=== PATIENT | female | born 1985 | race Caucasian/White ===

== ENCOUNTER 2018-10-07 09:13 | Day surgery (SDC) | payer MEDICAID ==
[2018-10-07] VITALS (15 sets, daily range): BP systolic 111–155; BP diastolic 71–94; PULSE 88–112; RESP 15–20; Ht 152.4 cm; Wt 74.0 kg
[~2018-10-07] VITALS: Ht 152.4 cm; Wt 74.0 kg
--- NOTE | 2018-10-07 08:53 | PREOPHP ---
DATE OF ADMISSION: 10/07/2018 HISTORY OF PRESENT ILLNESS: Ms. Marcy Najera is a 33-year-old 3, para 2, LMP 07/23/2018, diagnosed with missed , approximately 9 weeks gestational age, desires surgical management. PAST MEDICAL HISTORY: None. MEDICATIONS: None. PAST SURGICAL HISTORY: Cholecystectomy. OBSTETRIC HISTORY: x2 vaginal deliveries. GYNECOLOGIC HISTORY: 14, irregular, 5 days. She denies any sexually transmitted infections. Sexual ly active with 1 partner. SOCIAL HISTORY: She denies any smoking, drugs or alcohol. FAMILY HISTORY: None. REVIEW OF SYSTEMS: All within normal except history of present illness. PHYSICAL EXAMINATION: HEENT: Within normal. LUNGS: CTA bilateral. CARDIOVASCULAR: S1, S2, regular rhythm. ABDOMEN: Soft, nontender, negative distention. EXTREMITIES: Negative edema. No calf tenderness. VAGINAL: Normal external genitalia. Cervix negative CMT, negative lesions. Adnexa negative mass, n ontender bilateral. Fundus 8 to 10 weeks size uterus. IMAGING STUDIES: Ultrasound performed on 10/03/2018. Impression was an embryonic demise at approxim ately 9 weeks gestational age. ASSESSMENT: Missed , approximately 9 weeks gestational age, Rh positive. Desires surgical m anagement. PLAN: Consent for suction dilation and curettage. Risks, benefits and alternatives were explained. All questions were answered. Dictated By: SANDI ARAGON/EMEKA Conf#: [id number] DID#: [id number] CC: SANDI BRUMFIELD MD;*EndCC*
--- NOTE | 2018-10-07 12:10 | PREAC ---
Date/Time of Note Date/Time of Note DATE: 10/07/18 TIME: 12:08 Anesthesia Eval and Record Evaluation Time Pre-Procedure Interview DATE: 10/07/18 TIME: 12:08 Age 33 Sex female NPO: 8 hrs Preoperative diagnosis missed Planned procedure suction dilation curettage Past Medical History Past Medical History: Includes GI: Obesity Surgery & Anesthesia Issues No known issue Meds Anticoagulation: No Beta Simon within 24 hr: No Reason Beta Simon not given: Pt. not on B-Simon Meds reviewed: Yes Allergies Coded Allergies: No Known Allergy (Verified , 10/07/18) Allergies Reviewed: Yes Labs/Studies Labs Reviewed: Reviewed by anesthesiologist Result Diagram: 10/07/18 1012 Laboratory Tests 10/07/18 10:12 Blood Bank Test 10/07/18 10:12 Antibody Screen NEGATIVE Blood Type O POSITIVE test: N/A Pre-procedure Exam Last vitals Vital Signs Date Temp Pulse Resp B/P (MAP) Pulse Ox O2 O2 Flow FiO2 Time Delivery Rate 10/07/18 96.7 88 18 127/72 99 10:24 (90) Airway: Adequate mouth opening, Adequate thyromental dist Mallampati: Mallampati II Teeth: Normal Lung: Normal Heart: Normal ASA Physical Status ASA physical status: 2 Emergency: None Planned Anesthetic General/MAC: LMA Planned Pain Management Parenteral pain med Pre-operative Attestations Prior to commencing anesthesia and surgery, the patient was re-evaluated, there was verification of: *The patient's identity *The results of appropriate recent lab work and preoperative vital signs *The above evaluation not changing prior to induction *Anesthetic plan, risk benefits, alternative and complications discussed with patient/family; questions answered; patient/family understands, accepts and wishes to proceed. KIT DEE MD Oct 07, 2018 12:10
[2018-10-07] MEDS ORDERED: ONDANSETRON 4 MG INJ IV PRN (12:30)
[2018-10-07] MEDS ORDERED: DIPHENHYDRAMINE 50 MG INJ IV PRN (12:30)
[2018-10-07] MEDS ORDERED: OXYCODONE/ACETAMINOPHEN (5/325) TAB PO PRN (12:30)
[2018-10-07] MEDS ORDERED: FENTAnyl 50 MCG/ML VIAL IV PRN ×3 (12:30)
[2018-10-07] MEDS ORDERED: HYDROmorphONE 1 MG/5 ML IV SYRINGE IV PRN ×3 (12:30)
[2018-10-07] MEDS ORDERED: MEPERIDINE 25 MG INJ IV PRN (12:30)
[2018-10-07] MEDS ORDERED: hydrALAzine 20 MG INJ IV PRN (12:30)
[2018-10-07] MEDS ORDERED: EPHEDrine 25 MG/5 ML SYG IV PRN (12:30)
[2018-10-07] MEDS ORDERED: PROCHLORPERAZINE 10 MG INJ IV PRN (12:30)
[2018-10-07] MEDS ORDERED: LABETALOL HCL 20MG INJ IV PRN (12:30)
[2018-10-07] MEDS ORDERED: LIDOCAINE 2% (SDV) 5 ML INJ ONE (12:48)
[2018-10-07] MEDS ORDERED: PROPOFOL 20 ML ONE (12:48)
[2018-10-07] MEDS ORDERED: FENTAnyl 50 MCG/ML VIAL ONE (12:49)
[2018-10-07] MEDS ORDERED: MIDAZOLAM 1 MG/ML 2 ML INJ ONE (12:49)
[2018-10-07] MEDS ORDERED: DEXAMETHASONE 4 MG/ML 5 ML INJ ONE (13:06)
[2018-10-07] MEDS ORDERED: FAMOTIDINE 20 MG INJ ONE (13:06)
[2018-10-07] MEDS ORDERED: CEFAZOLIN 1 GM INJ ONE (13:06)
[2018-10-07] MEDS ORDERED: ONDANSETRON 4 MG INJ ONE (13:06)
[2018-10-07] MEDS ORDERED: EPHEDrine 25 MG/5 ML SYG ONE (13:21)
--- NOTE | 2018-10-07 13:22 | OPPN ---
Date/Time of Note Date/Time of Note DATE: 10/07/18 TIME: 13:20 Operative Report Planned Procedure Procedure date Oct 07, 2018 Procedure(s) suction dilation and curettage Performed by see signature line Asset Specialist: SANDI BRUMFIELD MD 2nd Asset Specialist none Pre-procedure diagnosis Missed , approximately 9 weeks gestational age, Rh positive. [id number] Anesthesia Type: Baele1t general Post-Procedure Post-procedure diagnosis same Findings 8 wks size uterus with products of conception Estimated Blood Loss: 0 - 10 mls (50) Specimen(s) products of conception Grafts/Implant(s) none Complication(s) none SANDI BRUMFIELD MD Oct 07, 2018 13:22
--- NOTE | 2018-10-07 13:35 | PAC ---
Date/Time of Note Date/Time of Note DATE: 10/07/18 TIME: 13:34 Post-Anesthesia Notes Post-Anesthesia Note Last documented vital signs Vital Signs Date Temp Pulse Resp B/P (MAP) Pulse Ox O2 O2 Flow FiO2 Time Delivery Rate 10/07/18 96.7 88 18 127/72 99 10:24 (90) Activity: WNL Respiratory function: WNL Cardiovascular function: WNL Mental status: Baseline Pain reasonably controlled: Yes Hydration appropriate: Yes Nausea/Vomiting absent: Yes Comments BP: 134/88 HR: 99 RR: 15 T: 99.5 SaO2: 100% KIT DEE MD Oct 07, 2018 13:35
[2018-10-07] MEDS ORDERED: METHYLERGONOVINE 0.2 MG INJ ONE (13:44)
--- NOTE | 2018-10-07 14:09 | PD.PPDC ---
HEEL ROOM SUPERVISOR Discharge Instruction Condition [id number] Patient Condition: Keyap3z Good Diet [id number] Diet: Usiza6z Resume Regular Diet Activity/Restrictions Visad2Zf Activity: Gkwle4i Normal Activity May Shower Sqeig1Zv Restrictions: Hvoso6i No Exercising No Lifting No Driving No Sexual Activity Nothing in the Vagina No [place] No Tampons, douche Follow-up Follow-up with Physician: 2, Week/Weeks Return to clinic for Xnusx9Sn CLINICAL TRIAL ASSISTANT Instructions: Jrgfc1r Fever greater than 101 Chills Worsening abdominal pain Excessive Vaginal Bleeding More than 2 pads per hour Unable to tolerate diet Qwcql2Bv OB Instructions: Czeke5d Breast Tenderness Depression Blurried Vision Headache SANDI BRUMFIELD MD Oct 07, 2018 14:09
--- NOTE | 2018-10-09 17:34 | OPR ---
DATE OF OPERATION: 10/07/2018 PRIMARY DIAGNOSES: Missed at approximately 9 weeks' gestational age, Rh positive. POSTOPERATIVE DIAGNOSES: Missed at approximately 9 weeks' gestational age, Rh positive. PROCEDURE: Suction, dilation, and curettage. SURGEON: Sandi Castro MD RISK AND COMPLIANCE ANALYTICS DIRECTOR: None. ANESTHESIA: General. COMPLICATIONS: None. ESTIMATED BLOOD LOSS: 50 mL. FINDINGS: An 6-zgwn-ofeha uterus with moderate amounts of products of conception. PATHOLOGY: Products of conception. DESCRIPTION OF PROCEDURE: After explaining the risks, benefits, and alternatives, the patient had co nsent signed in chart, the patient was taken to the operating where general anesthesia was obtained w gaston christian. The patient was then examined under anesthesia and found to have an 4-fjpg-drqnn uterus with normal adnexa. She was then placed in a dorsal lithotomy position and prepared and drape d in a sterile fashion. A heavy weighted speculum was then placed in the patient's vagina, and the a nterior lip of the cervix was grasped with a single tooth tenaculum. An 8 mm suction curet was gentl y advanced into the uterine fundus. The suction device was then activated, and the curet rotated to clear the uterus of all products of conception. A sharp curettage was then performed until a gritty texture was noted. The suction curet was reintroduced to clear the uterus of all remaining products of conception. There was minimal bleeding noted, and the tenaculum removed and good hemostasis noted . The patient tolerated the procedure well and the patient was taken to recovery in stable condition . Dictated By: SANDI ARAGON/EMEKA Conf#: [id number] DID#: [id number]
== END 2018-10-07 15:45 | disposition home or self-care (01) ==
LOC: SDS 09:13
PROVIDERS: ATTEND Obstetrics & Gynecology
DX: O02.1 Missed abortion (principal); O36.0910 Maternal care for other rhesus isoimmunization, first trimester, not applicable or unspecified; Z3A.09 9 weeks gestation of pregnancy
CPT/HCPCS: 59820; 85025; 86850; 86900; 86901; 88305; J0690; J1100; J1170; J2210; J2250; J2405; J3010; Z7512; Z7610